=== PATIENT | female | born 2000 | race Caucasian/White ===

== ENCOUNTER 2023-02-04 03:08 | Emergency (ER) | payer OTHER, SELFPAY ==
[2023-02-04 03:14] VITALS: BP 119/61; BP 128/96; PULSE 63; PULSE 76; RESP 17; TEMP 36.7; O2SAT 100; O2SAT 97; BMI 21.9
[2023-02-04 03:29] VITALS: BP 119/61; PULSE 63; RESP 17; TEMP 36.7; O2SAT 100
--- NOTE | 2023-02-04 03:31 | ED_ITS ---
HPI - Nausea/Vomiting/Diarrhea General Chief complaint: Nausea/Vomiting/Diarrhea Stated complaint: N/V/D Time Seen by Provider: 02/04/23 03:19 History of Present Illness HPI Narrative: Patient is a 22-year-old female presents today with having nausea vomiting diarrhea [place] the mall. Diarrhea is mostly liquidy. No blood. Vomiting mostly food. Has mild cramping in the abdomen. Patient is from home. Multiple episodes of vomiting. No fever no chills. No pain on urination. Patient from home. No flank pain. No history of abdominal surgery. No history of travel. No history of recent antibiotic Related Data Previous Rx's Medication Instructions Recorded ondansetron 4 mg disintegrating 4 mg PO TID PRN nausea and 02/04/23 tablet vomiting 5 days #10 tabs Allergies Allergy/AdvReac Type Severity Reaction Status Date / Time No Known Allergies Allergy Verified 02/04/23 03:29 Review of Systems Review of Systems: Positive abdominal pain, nausea vomiting diarrhea Yes all other systems are reviewed and are negative PMFSH Past Medical History Attestation statement: The following information was validated with the patient. Social History Social History Smoked in Last 30 Days: No Advance Directives: No Advance Directives Information Provided: No Physical Exam Vital Signs: Vital Signs: Last Vital Signs Temp 98.7 F 02/04/23 06:28 Pulse 86 02/04/23 06:28 Resp 18 02/04/23 06:28 BP 127/59 L 02/04/23 06:28 Pulse Ox 96 02/04/23 06:28 O2 Del Method Room Air 02/04/23 06:28 BMI result Body Mass Index 21.9 Appearance: Alert. Oriented X3. No acute distress. Eyes: Pupils equal, round and reactive to light. ENT: Pharynx normal. Neck: Normal inspection. Neck supple. No lymph nodes noted. No crepitus CVS: Normal heart rate and rhythm. Pulses normal. Normal S1 and S2 Respiratory: No respiratory distress. Breath sounds normal. No Wheezing. No rales Abdomen: Soft and nontender. No rigidity. No distention. good BS x4 Skin: Skin warm and dry. Normal skin color. Normal skin turgor. Extremities: No lower extremity edema. Neurovascular intact to all extremities. No Lacerations. No Rash Neuro: Oriented X 3. No motor deficit. No sensory deficit. Moving all extermities. No slurred speech Medications Administered Discontinued Medications Generic Name Dose Route Start Last Admin Trade Name Ambrosio PRN Reason Stop Dose Admin Sodium Chloride 1,000 mls @ 999 mls/hr 02/04/23 03:30 02/04/23 04:50 Ns IV 02/04/23 04:30 Infused .Q1H1M GRACE Infusion Sodium Chloride 1,000 mls @ 999 mls/hr 02/04/23 03:45 02/04/23 05:32 Ns IV 02/04/23 04:45 Infused .Q1H1M GRACE Infusion Ondansetron HCl 4 mg 02/04/23 03:29 02/04/23 03:46 Ondansetron Odt 4 Mg Tab.Rapdis SUBLINGUAL 02/04/23 03:30 4 mg ONCE ONE Administration Medical Decision Making Medical Decision Making [facility] Narrative: Patient has nausea vomiting diarrhea. Given IV fluids. Monitor in emergency department. test was negative. No evidence for UTI. Repeat abdominal exam is soft nontender felt the risk for appendicitis is low. Patient now tolerating fluids after Zofran and IV fluids. Will discharge home Differential Diagnosis Differential Diagnoses: The differential diagnosis associated with the presentation includes Appendicitis, kidney stone, UTI, Lab Data [facility] Lab Attestation statement: I reviewed the patient's lab results. 02/04/23 03:38 02/04/23 03:38 Labs: Lab Results 02/04/23 02/04/23 02/04/23 Range/Units 03:38 03:38 05:34 WBC 8.4 (4.8-10.8) X10*3/uL RBC 4.64 (4.20-5.50) X10*6/uL Hgb 13.9 (12.0-16.0) g/dl Hct 40.8 (37.0-47.0) % MCV 87.9 (80.0-98.0) fL MCH 30.0 (27.0-33.0) pg MCHC 34.1 (31.0-35.0) g/dl RDW 11.7 (11.0-16.0) % Plt Count 182 (160-400) X10*3/uL MPV 9.6 (9.4-12.3) fL Immature Gran % (Auto) 0.4 (0.0-0.4) % Neut % (Auto) 90.8 H (45-73) % Lymph % (Auto) 3.9 L (20-40) % [place] % (Auto) 3.9 (2-11) % Eos % (Auto) 0.8 (0-4) % Baso % (Auto) 0.2 (0-2) % Lymph # (Auto) 0.3 L (1.2-4.9) X10*3/uL [place] # (Auto) 0.3 (0.1-1.2) X10*3/uL Eos # (Auto) 0.1 (0.0-0.4) X10*3/uL Baso # (Auto) 0.0 (0.0-0.2) X10*3/uL Abs Immat Gran (auto) 0.03 (0.00-0.03) X10*3/uL Absolute Neuts (auto) 7.6 (2.0-8.3) x10*3/uL Absolute Nucleated RBC 0.000 (0.0-0.012) X10*3/uL Nucleated RBC % (auto) 0.0 (0.0-0.2) /100WBC Sodium 141 (135-145) mmol/L Potassium 4.2 (3.3-5.1) mmol/L Chloride 109 H (96-108) mmol/L Carbon Dioxide 26 (22-29) mmol/L Anion Gap 10 L (12-20) BUN 14 (9-16) mg/dL Creatinine 0.77 (0.5-1.4) mg/dL Estim Creat Clear Calc 82.3 Estimated GFR > 60 Random Glucose 104 (60-115) mg/dL Calcium 8.9 (8.4-10.2) mg/dL Lipase 15 (8-78) U/L Beta HCG, Quant < 2 mIU/mL Urine Color Yellow Urine Appearance Clear Urine pH 7.0 (5.0-9.0) Ur Specific [place] 1.020 (1.005-1.025) Urine Protein Negative (Neg-Trace) mg/dL Urine Glucose (UA) Negative (Negative) mg/dL Urine Ketones 15 (Negative) mg/dL Urine Blood Negative (Negative) Urine Nitrite Negative (Negative) Ur Leukocyte Esterase Negative (Negative) Discharge Plan Discharge Clinical Impression: Dehydration, Gastroenteritis Patient Disposition: Home, Self-Care Instructions: Gastroenteritis (DC) Prescriptions: New ondansetron 4 mg tablet,disintegrating 4 mg PO TID PRN (Reason: nausea and vomiting) 5 Days Qty: 10 0RF Referrals: Physician,Unknown J [Primary Care Provider] - 02/06/23
--- NOTE | 2023-02-04 03:41 | PC.NURSE ---
aox4 no apparent distress pt c/o n/v/diarrhea pt questioning food poisoning abd pain 03/04
[2023-02-04 03:42] LABS: Basophils Percent Auto 0.2 % (0-2); Eosinophils Absolute Auto 0.1 X10*3/uL (0.0-0.4); Eosinophils Percent Auto 0.8 % (0-4); Hematocrit 40.8 % (37.0-47.0); Hemoglobin 13.9 g/dl (12.0-16.0); Imm Gran Abs Auto 0.03 X10*3/uL (0.00-0.03); Imm Gran Pct Auto 0.4 % (0.0-0.4); Lymphocytes Absolute Auto 0.3 X10*3/uL (1.2-4.9); Lymphocytes Percent Auto 3.9 % (20-40); MANUAL DIFF FLAG NO; Mean Corpuscular HGB Conc 34.1 g/dl (31.0-35.0); Mean Corpuscular Volume 87.9 fL (80.0-98.0); Mean Platelet Volume 9.6 fL (9.4-12.3); Monocytes Absolute Auto 0.3 X10*3/uL (0.1-1.2); Monocytes Percent Auto 3.9 % (2-11); Neutrophils Absolute Auto 7.6 x10*3/uL (2.0-8.3); Neutrophils Percent Auto 90.8 % (45-73); Platelet Count 182 X10*3/uL (160-400); Red Blood Count 4.64 X10*6/uL (4.20-5.50); Red Cell Distribution Width 11.7 % (11.0-16.0); SCAN SMEAR FLAG 1; White Blood Count 8.4 X10*3/uL (4.8-10.8)
[2023-02-04] MEDS: 0.9 % Sodium Chloride 1,000 ML 999 ML IV ×2 (03:46)
[2023-02-04] MEDS: Ondansetron ODT 4 MG TAB.RAPDIS SUBLINGUAL (03:46)
[2023-02-04 04:13] LABS: Anion Gap 10 (12-20); Blood Urea Nitrogen 14 mg/dL (9-16); Calcium 8.9 mg/dL (8.4-10.2); Carbon Dioxide 26 mmol/L (22-29); Chloride 109 mmol/L (96-108); Creatinine Clr Calc Pharmacy 82.3; Estimated Glomerular Filt Rate > 60; Glucose Random 104 mg/dL (60-115); Lipase 15 U/L (8-78); Potassium 4.2 mmol/L (3.3-5.1); Sodium 141 mmol/L (135-145)
[2023-02-04 04:18] LABS: HCG Quantitative < 2 mIU/mL
--- NOTE | 2023-02-04 06:27 | PC.NURSE ---
tube system down, urine spe walked down to lab
[2023-02-04 06:28] VITALS: BP 127/59; PULSE 86; RESP 18; TEMP 37.1; O2SAT 96
[2023-02-04 06:30] LABS: Appearance Urine Clear; Color Urine Yellow; Glucose Urine UA Negative (Negative); Leukocyte Esterase Urine Negative (Negative); Nitrite Urine Negative (Negative); Urine Blood Negative (Negative); Urine Ketones 15 mg/dL (Negative); Urine Protein Negative (Neg-Trace)
== END 2023-02-04 06:47 | disposition home or self-care (01) ==
PROVIDERS: Emergency Provider Emergency Medicine Emergency Medical Services
DX: E86.0 Dehydration (principal); K52.9 Noninfective gastroenteritis and colitis, unspecified; R11.2 Nausea with vomiting, unspecified
CPT/HCPCS: 36415; 80048; 81003; 83690; 84702; 85025; 96360; 99284